=== PATIENT | male | born 1985 | race Caucasian/White ===

== ENCOUNTER 2024-04-04 15:42 | Inpatient (IN) | payer OTHER ==
[2024-04-04 18:03] VITALS: BMI 30.7
[2024-04-04] MEDS ORDERED: MAGNESIUM HYDROX 2400MG/30ML ORAL SUSPENSION 30 ML CUP PO PRN (18:21)
[2024-04-04] MEDS ORDERED: P-EPHED 60MG/TRIPROLIDI 2.5MG TABLET PO PRN (18:21)
[2024-04-04] MEDS ORDERED: IBUPROFEN 400 MG TABLET (FP) PO PRN (18:21)
[2024-04-04] MEDS ORDERED: POLYETHYLENE GLYCOL (HEALTHYLAX) 3350 17 GM PACKET PO PRN (18:21)
[2024-04-04] MEDS ORDERED: BENZOCAINE/MENTHOL (CHLORASEPTIC ) LOZENGE MM PRN (18:21)
[2024-04-04] MEDS ORDERED: NALOXONE (NARCAN) HCL 4 MG/0.1 ML SPRAY NS PRN (18:21)
[2024-04-04] MEDS ORDERED: BENZONATATE 200 MG CAPSULE PO PRN (18:21)
[2024-04-04] MEDS ORDERED: ACETAMINOPHEN 325 MG TABLET (FP) PO PRN (18:21)
[2024-04-04] MEDS ORDERED: NALOXONE HCL 0.4 MG/ML VIAL IM PRN (18:21)
[2024-04-04] MEDS ORDERED: LOPERAMIDE HCL 2 MG CAPSULE PO PRN (18:21)
[2024-04-04] MEDS ORDERED: guaiFENesin 600 MG TABLET.ER (FP) PO PRN (18:21)
[2024-04-04] MEDS: cloNIDine HCL 0.1 MG TABLET PO PRN (19:16)
[2024-04-04] MEDS: IBUPROFEN 600 MG TABLET (FP) PO PRN (19:16)
[2024-04-04] MEDS: methaDONE HCL 10 MG TABLET (FOR DETOX USE ONLY) PO ONE (20:17)
[2024-04-04] MEDS: THIAMINE 100 MG TABLET PO SCH (22:24)
[2024-04-04] MEDS: MELATONIN 5 MG TABLETS PO SCH (22:24)
[2024-04-04] MEDS: METHOCARBAMOL 500 MG TABLET PO PRN (22:25)
[2024-04-05] MEDS: hydrOXYzine PAMOATE 25 MG CAPSULE (FP) PO PRN (09:26)
[2024-04-05] MEDS: PRENATAL VITAMINS W/ FOLIC ACID TABLET (FP) PO SCH (09:26)
[2024-04-05] MEDS: NICOTINE 14 MG/24 HOURS TOPICAL PATCH TD SCH (10:44)
[2024-04-05 12:00] LABS: HEMATOCRIT 42.1 % (35.4-49); HEMOGLOBIN 14.3 GM/dL (11.7-16.9); MCH 28.7 pg (25.7-33.7); MCHC 34.1 g/dl (32.0-35.9); MEAN CELL VOLUME 84.3 fl (80-96); MEAN PLT VOLUME 7.4 fl (7.5-11.1); PLATELET COUNT 335 10^3/uL (134-434); RBC 4.99 M/mm3 (4.00-5.60); RDW 14.1 % (11.9-15.9); WHITE BLOOD COUNT 7.4 K/mm3 (4.0-10.0)
[2024-04-05 12:02] LABS: POTASSIUM 3.8 mmol/L (3.5-5.1)
[2024-04-05 12:06] LABS: ALBUMIN 3.5 g/dl (3.4-5.0); BLOOD UREA NITROGEN 15.6 mg/dL (7-18)
[2024-04-05 12:11] LABS: BILIRUBIN,TOTAL 0.6 mg/dL (0.2-1)
[2024-04-05 12:12] LABS: TOT PROT 6.8 g/dl (6.4-8.2)
[2024-04-05 13:00] LABS: HIV INTERPRETATION NEGATIVE (NEGATIVE)
[2024-04-05] MEDS: NICOTINE POLACRILEX 2 MG GUM BUC PRN (13:40)
[2024-04-06] MEDS: methaDONE HCL 10 MG TABLET (FOR DETOX USE ONLY) PO ONE (09:49)
[2024-04-06] MEDS: ONDANSETRON *ODT* 4 MG TABLET SL PRN (09:51)
[2024-04-06] MEDS: diazePAM 5 MG TABLET PO PRN (12:07)
[2024-04-06] MEDS: SUVOREXANT 10 MG TABLET PO PRN (22:23)
[2024-04-07] MEDS: cloNIDine HCL 0.1 MG TABLET PO PRN (10:53)
[2024-04-07] MEDS: MAG HYDROX/AL HYDROX/SIMETH 30 ML UNIT-DOSE CUP PO PRN (22:08)
[2024-04-08] MEDS: methaDONE HCL 10 MG TABLET (FOR DETOX USE ONLY) PO ONE (09:29)
[2024-04-08] MEDS: BISMUTH SUBSALICYLATE 524 MG/30 ML PO PRN (13:51)
[2024-04-08] MEDS: DICYCLOMINE HCL 10 MG CAPSULE PO PRN (20:13)
[2024-04-09 06:23] VITALS: RESP 16
[2024-04-09 10:45] VITALS: BP 111/70; PULSE 65; TEMP 98.2
== END 2024-04-09 09:27 | disposition home or self-care (01) | DRG 897 ==
LOC: YASAS 15:42 → Y6N 18:39
PROVIDERS: ADMIT Allergy & Immunology; ATTEND Psychiatry & Neurology Pain Medicine
PROC: HZ2ZZZZ Detoxification Services for Substance Abuse Treatment (ICD-10-PCS; principal; 2024-04-04)
DX: F11.23 Opioid dependence with withdrawal (principal); Z59.02 Unsheltered homelessness; F12.20 Cannabis dependence, uncomplicated; F41.9 Anxiety disorder, unspecified; F90.9 Attention-deficit hyperactivity disorder, unspecified type; M25.572 Pain in left ankle and joints of left foot; Z87.81 Personal history of (healed) traumatic fracture; Z99.89 Dependence on other enabling machines and devices; Z87.891 Personal history of nicotine dependence; Z56.0 Unemployment, unspecified
CPT/HCPCS: 36415; 80053; 80305; 85027; 86780; 87389; 93005; 93010; Q0162